=== PATIENT | female | born 1970 | race African-American/Black ===

== ENCOUNTER 2017-08-22 00:50 | Inpatient (IN) | payer MEDICAID, OTHER ==
[2017-08-22] VITALS (8 sets, daily range): BP systolic 117–132; BP diastolic 64–83
[~2017-08-22] VITALS: Ht 157.5 cm; Wt 54.9 kg
[2017-08-22 05:58] LABS: CLARITY URINE CLOUDY (CLEAR); COLOR URINE YELLOW (YELLOW); KETONES URINE TRACE (NEGATIVE); LEUKOCYTE ESTERASE URINE TRACE (NEGATIVE); NITRITE URINE NEGATIVE (NEGATIVE); OCCULT BLOOD URINE 2+ (NEGATIVE); PROTEIN URINE 1+ (NEGATIVE); SPECIFIC GRAVITY URINE 1.028 (1.005-1.030); UROBILINOGEN URINE 0.2 E.U./dL (0.2-1.0)
[2017-08-22 06:01] LABS: MEAN CORPUSCULAR VOLUME 58.6 fL (81.0-99.0); MEAN PLATELET VOLUME 8.6 fl (7.4-10.4); PLATELET 398 x1000/uL (130-400); RED BLOOD CELL COUNT 3.46 mill/uL (4.2-5.4); RED CELL DISTRIBUTION WIDTH 22.6 % (11.6-14.6)
[2017-08-22 06:06] LABS: HEMOGLOBIN. 5.9 g/dL (12.0-16.0)
[2017-08-22 06:07] LABS: HEMATOCRIT. 20.3 % (36.0-48.0)
[2017-08-22 06:09] LABS: CHLORIDE 104 mEq/L (98-107); ETHANOL BLOOD < 10 mg/dL
[2017-08-22 06:24] LABS: *AMPHETAMINES SCREEN URINE NEGATIVE (NEGATIVE); *BARBITURATES SCREEN URINE NEGATIVE (NEGATIVE); *BENZODIAZEPINES SCREEN URINE NEGATIVE (NEGATIVE); *COCAINE SCREEN URINE NEGATIVE (NEGATIVE); METHADONE URINE SCREEN NEGATIVE (NEGATIVE); OPIATES URINE SCREEN NEGATIVE (NEGATIVE)
[2017-08-22 06:27] LABS: CANNABINOID URINE SCREEN PRESUMTIVE POSITIVE (NEGATIVE); PHENCYCLIDINE URINE SCREEN PRESUMTIVE POSITIVE (NEGATIVE)
[2017-08-22 07:08] LABS: PLATELET ESTIMATE NORMAL
[2017-08-22] MEDS ORDERED: NA PHOS,M-B/NA PHOS,DI-BA ENEMA 118ML PR PRN (07:45)
[2017-08-22] MEDS ORDERED: LORAZEPAM 0.5MG TABLET PO PRN (07:45)
[2017-08-22] MEDS ORDERED: DOCUSATE SODIUM 100MG CAPSULE PO PRN (07:45)
[2017-08-22] MEDS ORDERED: HALOPERIDOL LACTATE 5MG/ML VIAL IM PRN (07:45)
[2017-08-22] MEDS ORDERED: IPRATROPIUM/ALBUTEROL 0.5-3(2.5)MG/3ML NEB INH PRN (07:45)
[2017-08-22] MEDS ORDERED: NITROGLYCERIN 0.4MG TABLET SL SL PRN (07:45)
[2017-08-22] MEDS ORDERED: DIPHENHYDRAMINE 50MG/ML VIAL IV PRN (07:45)
[2017-08-22] MEDS ORDERED: ACETAMINOPHEN 325MG TABLET PO PRN (07:45)
[2017-08-22] MEDS ORDERED: KETOROLAC 15MG/ML VIAL IV PRN (07:45)
[2017-08-22] MEDS ORDERED: ZOLPIDEM TARTRATE 5MG TABLET PO PRN (07:45)
[2017-08-22] MEDS ORDERED: ONDANSETRON HCL 4MG/2ML VIAL IV PRN (07:45)
[2017-08-22] MEDS: FAMOTIDINE 20MG/2ML VIAL IV SCH ×2 (11:38→20:24)
[2017-08-22] MEDS ORDERED: POTASSIUM CHLORIDE 20MEQ/PACKET PO NR (12:15)
[2017-08-22] MEDS ORDERED: LEVOFLOXACIN 500MG PREMIX 100 ML IV SCH (14:00)
[2017-08-22 19:59] LABS: HEMATOCRIT 26.7 % (36.0-48.0); HEMOGLOBIN 8.1 g/dL (12.0-16.0)
[2017-08-22 20:00] LABS: PROTHROMBIN TIME 10.8 sec (9.4-11.6)
[2017-08-23] VITALS: BP 116/77
[2017-08-23 04:00] VITALS: BP 123/73
[2017-08-23 07:27] VITALS: BP 111/66
[2017-08-23] MEDS: FAMOTIDINE 20MG/2ML VIAL IV SCH (08:10)
[2017-08-23 09:39] LABS: BASOPHILS % 1.2 % (0.0-2.0); HEMATOCRIT. 28.9 % (36.0-48.0); HEMOGLOBIN. 8.7 g/dL (12.0-16.0); LYMPHOCYTES % 11.8 % (20.0-50.0); MEAN CORPUSCULAR HEMOGLOBIN 19.6 pg (28.0-32.0); MEAN CORPUSCULAR VOLUME 65.2 fL (81.0-99.0); MEAN PLATELET VOLUME 8.5 fl (7.4-10.4); PLATELET 345 x1000/uL (130-400); RED BLOOD CELL COUNT 4.44 mill/uL (4.2-5.4); RED CELL DISTRIBUTION WIDTH 29.2 % (11.6-14.6)
[2017-08-23 10:41] VITALS: BP 111/66
[2017-08-23 11:25] VITALS: BP 106/72
== END 2017-08-23 11:45 | disposition home or self-care (01) | DRG 463 ==
LOC: ER 00:50 → 8WST 06:32 → ENRESERV 08:22
PROVIDERS: ADMIT Internal Medicine; ATTEND Internal Medicine
PROC: 30233N1 Transfusion of Nonautologous Red Blood Cells into Peripheral Vein, Percutaneous Approach (ICD-10-PCS; principal; 2017-08-22)
DX: N39.0 Urinary tract infection, site not specified (principal); E87.6 Hypokalemia; N93.8 Other specified abnormal uterine and vaginal bleeding; D64.9 Anemia, unspecified; F17.210 Nicotine dependence, cigarettes, uncomplicated; F19.10 Other psychoactive substance abuse, uncomplicated; F99 Mental disorder, not otherwise specified; Z71.51 Drug abuse counseling and surveillance of drug abuser
CPT/HCPCS: 36415; 76830; 76856; 80053; 80305; 81001; 83036; 85014; 85018; 85025; 85049; 85384; 85610; 86850; 86900; 86920; 87077; 87086; 87186; 93970; 99285; G0482; J1956; J3490; P9016

== ENCOUNTER 2020-09-05 22:27 | Emergency (ER) | payer MEDICAID, OTHER ==
[~2020-09-05] VITALS: Ht 157.5 cm; Wt 52.0 kg
[2020-09-05 22:36] VITALS: BP 121/72
== END 2020-09-05 22:59 | disposition left against medical advice (07) ==
LOC: ER 22:27
DX: R55 Syncope and collapse (principal); Z53.21 Procedure and treatment not carried out due to patient leaving prior to being seen by health care provider
CPT/HCPCS: 93005

== ENCOUNTER 2020-11-27 02:02 | Emergency (ER) | payer MEDICAID ==
[~2020-11-27] VITALS: Ht 157.5 cm; Wt 60.0 kg
[2020-11-27] MEDS ORDERED: ZIPRASIDONE MESYLATE 20MG/VIAL IM ONE (02:30)
[2020-11-27 02:53] LABS: BASOPHILS % 1.2 % (0.0-2.0); EOSINOPHILS % 0.3 % (0.0-5.0); HEMATOCRIT. 21.6 % (36.0-48.0); LYMPHOCYTES % 17.8 % (20.0-50.0); MEAN CORPUSCULAR HEMOGLOBIN 15.6 pg (28.0-32.0); MEAN CORPUSCULAR VOLUME 61.6 fL (81.0-99.0); MEAN PLATELET VOLUME 8.6 fl (7.4-10.4); NEUTROPHILS % 75.7 % (40.0-76.0); PLATELET 328 x1000/uL (130-400); RED CELL DISTRIBUTION WIDTH 21.7 % (11.6-14.6)
[2020-11-27 03:00] LABS: CHLORIDE 109 mEq/L (98-107)
[2020-11-27 03:02] LABS: HCG SCREEN NEGATIVE
[2020-11-27 03:04] LABS: ETHANOL BLOOD 74 mg/dL
[2020-11-27 03:16] LABS: CLARITY URINE CLOUDY (CLEAR); COLOR URINE YELLOW (YELLOW); KETONES URINE 1+ (NEGATIVE); LEUKOCYTE ESTERASE URINE NEGATIVE (NEGATIVE); NITRITE URINE NEGATIVE (NEGATIVE); OCCULT BLOOD URINE TRACE (NEGATIVE); PROTEIN URINE 3+ (NEGATIVE); SPECIFIC GRAVITY URINE 1.015 (1.005-1.030); UROBILINOGEN URINE 0.2 E.U./dL (0.2-1.0)
[2020-11-27 03:19] LABS: HEMOGLOBIN. 5.5 g/dL (12.0-16.0)
[2020-11-27 03:37] LABS: *AMPHETAMINES SCREEN URINE NEGATIVE (NEGATIVE); *BARBITURATES SCREEN URINE NEGATIVE (NEGATIVE); *BENZODIAZEPINES SCREEN URINE NEGATIVE (NEGATIVE)
[2020-11-27 03:38] LABS: *COCAINE SCREEN URINE NEGATIVE (NEGATIVE); METHADONE URINE SCREEN NEGATIVE (NEGATIVE); OPIATES URINE SCREEN NEGATIVE (NEGATIVE)
[2020-11-27 03:50] LABS: CANNABINOID URINE SCREEN PRESUMTIVE POSITIVE (NEGATIVE); PHENCYCLIDINE URINE SCREEN PRESUMTIVE POSITIVE (NEGATIVE)
[2020-11-27 04:30] VITALS: BP 125/74
[2020-11-27 04:56] LABS: PLATELET ESTIMATE NORMAL
== END 2020-11-27 05:52 | disposition left against medical advice (07) ==
LOC: ER 02:02 → EDBEDREQTM 05:40 → EDBEDREQ 05:40 → ER 05:52 → CANRESERV 07:37 → ENRESERV 07:37 → CANBEDREQ 17:51
DX: R41.82 Altered mental status, unspecified (principal); D64.9 Anemia, unspecified; Z78.1 Physical restraint status
CPT/HCPCS: 36415; 80053; 80305; 80307; 80320; 80329; 81003; 84703; 85025; 86850; 86900; 86901; 86920; 93005; 96372; 99291; J3486; G0480

== ENCOUNTER 2021-06-19 05:11 | Emergency (ER) | payer MEDICAID ==
[~2021-06-19] VITALS: Ht 157.5 cm; Wt 54.0 kg
[2021-06-19 05:52] LABS: BASOPHILS % 1.1 % (0.0-2.0); HEMATOCRIT. 21.5 % (36.0-48.0); LYMPHOCYTES % 18.7 % (20.0-50.0); MEAN CORPUSCULAR HEMOGLOBIN 16.6 pg (28.0-32.0); MEAN CORPUSCULAR VOLUME 60.9 fL (81.0-99.0); MEAN PLATELET VOLUME 8.6 fl (7.4-10.4); MONOCYTES % 6.5 % (2.0-8.0); NEUTROPHILS % 71.7 % (40.0-76.0); PLATELET 221 x1000/uL (130-400); RED BLOOD CELL COUNT 3.53 mill/uL (4.2-5.4); RED CELL DISTRIBUTION WIDTH 19.5 % (11.6-14.6)
[2021-06-19 05:55] LABS: CHLORIDE 109 mEq/L (98-107)
[2021-06-19 06:01] LABS: ETHANOL BLOOD < 10 mg/dL
[2021-06-19 06:09] LABS: HEMOGLOBIN. 5.9 g/dL (12.0-16.0)
[2021-06-19 06:51] LABS: CLARITY URINE TURBID (CLEAR); KETONES URINE TRACE (NEGATIVE); LEUKOCYTE ESTERASE URINE 2+ (NEGATIVE); NITRITE URINE NEGATIVE (NEGATIVE); OCCULT BLOOD URINE 3+ (NEGATIVE); PROTEIN URINE 2+ (NEGATIVE); SPECIFIC GRAVITY URINE 1.021 (1.005-1.030)
[2021-06-19 07:02] LABS: COLOR URINE BLOODY (YELLOW)
[2021-06-19 07:13] LABS: *BARBITURATES SCREEN URINE NEGATIVE (NEGATIVE); *COCAINE SCREEN URINE NEGATIVE (NEGATIVE)
[2021-06-19 07:14] LABS: METHADONE URINE SCREEN NEGATIVE (NEGATIVE); OPIATES URINE SCREEN NEGATIVE (NEGATIVE)
[2021-06-19 07:49] LABS: *AMPHETAMINES SCREEN URINE PRESUMTIVE POSITIVE (NEGATIVE); *BENZODIAZEPINES SCREEN URINE PRESUMTIVE POSITIVE (NEGATIVE); CANNABINOID URINE SCREEN PRESUMTIVE POSITIVE (NEGATIVE); PHENCYCLIDINE URINE SCREEN PRESUMTIVE POSITIVE (NEGATIVE)
[2021-06-19 07:58] LABS: PLATELET ESTIMATE NORMAL
[2021-06-19 09:45] VITALS: BP 128/71
== END 2021-06-19 10:00 | disposition left against medical advice (07) ==
LOC: ER 05:11 → CANBEDREQ 19:07
DX: G93.40 Encephalopathy, unspecified (principal); I49.9 Cardiac arrhythmia, unspecified; R51.9 Headache, unspecified
CPT/HCPCS: 36415; 70450; 71045; 80053; 80305; 80320; 81003; 85025; 86850; 86900; 86901; 93005; 99285; Z7610; G0480

== ENCOUNTER 2022-11-29 18:18 | Emergency (ER) | payer MEDICAID, OTHER ==
[~2022-11-29] VITALS: Ht 157.5 cm; Wt 55.0 kg
[2022-11-29 18:27] VITALS: BP 134/79
[2022-11-29 19:25] LABS: BASOPHILS % 1.3 % (0.0-2.0); EOSINOPHILS % 2.6 % (0.0-5.0); MEAN CORPUSCULAR HEMOGLOBIN 18.8 pg (28.0-32.0); MEAN CORPUSCULAR VOLUME 64.7 fL (81.0-99.0); MEAN PLATELET VOLUME 8.1 fl (7.4-10.4); NEUTROPHILS % 64.1 % (40.0-76.0); PLATELET 259 x1000/uL (130-400); RED BLOOD CELL COUNT 3.73 mill/uL (4.2-5.4); RED CELL DISTRIBUTION WIDTH 21.8 % (11.6-14.6)
[2022-11-29 19:28] LABS: HEMATOCRIT. 24.1 % (36.0-48.0)
[2022-11-29 19:30] LABS: CHLORIDE 105 mEq/L (98-107)
[2022-11-29 19:38] LABS: ETHANOL BLOOD < 10 mg/dL
[2022-11-29 19:41] LABS: HCG SCREEN NEGATIVE
[2022-11-29 19:51] LABS: PLATELET ESTIMATE NORMAL
[2022-11-29] MEDS ORDERED: SODIUM CHLORIDE 0.9% 1,000 ML IV ONE (21:00)
[2022-11-29] MEDS ORDERED: GUAIFENESIN 200MG/10ML SUGAR FREE UDC PO PRN (21:45)
[2022-11-29] MEDS ORDERED: POTASSIUM CHLORIDE 20MEQ TABLET SR PO ONE (21:45)
[2022-11-29] MEDS ORDERED: SODIUM CHLORIDE 0.9% 1,000 ML IV SCH (21:45)
[2022-11-29] MEDS ORDERED: CLONIDINE 0.1MG TABLET PO PRN (21:45)
[2022-11-29] MEDS ORDERED: MAGNESIUM/ALUMINUM HYDROXIDE/SIMETHICONE 30ML UDC PO PRN (21:45)
[2022-11-29] MEDS ORDERED: ONDANSETRON HCL 4MG/2ML INJ IV PRN (21:45)
[2022-11-29] MEDS ORDERED: HYDROCODONE/ACETAMINOPHEN 5/325MG TABLET PO PRN (21:45)
[2022-11-29] MEDS ORDERED: ACETAMINOPHEN 325MG TABLET PO PRN ×2 (21:45)
[2022-11-29] MEDS ORDERED: DOCUSATE SODIUM 100MG CAPSULE PO PRN (21:45)
[2022-11-29 23:13] LABS: FOLIC ACID (FOLATE) SERUM 14.2 ng/mL (>5.38)
[2022-11-30] MEDS ORDERED: FAMOTIDINE 20MG TABLET PO SCH (21:00)
== END 2022-11-29 23:36 | disposition left against medical advice (07) ==
LOC: ER 18:18 → EDBEDREQ 20:57 → ER 23:36
DX: D64.9 Anemia, unspecified (principal); R42 Dizziness and giddiness
CPT/HCPCS: 36415; 76830; 76856; 80053; 80061; 80320; 82607; 82728; 82746; 83540; 83550; 83735; 84443; 84703; 85025; 86850; 86900; 86901; 86920; 99284; J7030; G0480

== ENCOUNTER 2022-11-30 00:18 | Inpatient (IN) | payer MEDICAID, OTHER ==
[~2022-11-30] VITALS: Ht 167.6 cm; Wt 45.4 kg
[2022-11-30] MEDS ORDERED: SODIUM CHLORIDE 0.9% 1,000 ML IV ONE (01:45)
[2022-11-30 02:10] LABS: HEMATOCRIT. 27.1 % (36.0-48.0); HEMOGLOBIN. 7.7 g/dL (12.0-16.0); MEAN CORPUSCULAR HEMOGLOBIN 18.3 pg (28.0-32.0); MEAN CORPUSCULAR VOLUME 64.4 fL (81.0-99.0); MEAN PLATELET VOLUME 8.8 fl (7.4-10.4); PLATELET 229 x1000/uL (130-400); RED BLOOD CELL COUNT 4.21 mill/uL (4.2-5.4)
[2022-11-30 02:24] LABS: CHLORIDE 107 mEq/L (98-107)
[2022-11-30 02:33] LABS: ETHANOL BLOOD < 10 mg/dL
[2022-11-30 02:54] LABS: CLARITY URINE CLEAR (CLEAR); COLOR URINE YELLOW (YELLOW); KETONES URINE NEGATIVE (NEGATIVE); LEUKOCYTE ESTERASE URINE NEGATIVE (NEGATIVE); NITRITE URINE NEGATIVE (NEGATIVE); OCCULT BLOOD URINE NEGATIVE (NEGATIVE); PH URINE 5.5 (4.5-8.0); PROTEIN URINE 2+ (NEGATIVE); SPECIFIC GRAVITY URINE 1.025 (1.005-1.030)
[2022-11-30 03:07] LABS: *AMPHETAMINES SCREEN URINE PRESUMTIVE POSITIVE (NEGATIVE); *BARBITURATES SCREEN URINE NEGATIVE (NEGATIVE); *BENZODIAZEPINES SCREEN URINE PRESUMTIVE POSITIVE (NEGATIVE); *COCAINE SCREEN URINE PRESUMTIVE POSITIVE (NEGATIVE); CANNABINOID URINE SCREEN PRESUMTIVE POSITIVE (NEGATIVE); METHADONE URINE SCREEN NEGATIVE (NEGATIVE); OPIATES URINE SCREEN NEGATIVE (NEGATIVE); PHENCYCLIDINE URINE SCREEN PRESUMTIVE POSITIVE (NEGATIVE)
[2022-11-30 05:29] LABS: PLATELET ESTIMATE NORMAL
[2022-11-30] MEDS ORDERED: ONDANSETRON HCL 4MG/2ML INJ IV PRN (06:30)
[2022-11-30] MEDS ORDERED: HYDROCODONE/ACETAMINOPHEN 5/325MG TABLET PO PRN ×2 (06:30→06:45)
[2022-11-30] MEDS ORDERED: MORPHINE SULFATE 2 MG/ML CPJ (NOT FOR IM USE) IV PRN ×2 (06:30→06:45)
[2022-11-30] MEDS ORDERED: ACETAMINOPHEN 325MG TABLET PO PRN (06:30)
[2022-11-30] MEDS ORDERED: SODIUM CHLORIDE 0.9% 1,000 ML IV SCH (06:45)
[2022-11-30] MEDS ORDERED: LORAZEPAM 2MG/ML CPJ IV PRN (06:45)
[2022-11-30 08:00] VITALS: BP 115/71
[2022-11-30] MEDS ORDERED: NALOXONE HCL 0.4MG/ML VIAL IV PRN (08:15)
[2022-11-30 08:50] VITALS: BP 115/71
[2022-11-30] MEDS ORDERED: FOLIC ACID 1MG TABLET PO SCH (09:00)
[2022-11-30] MEDS ORDERED: POTASSIUM CHLORIDE 20MEQ TABLET SR PO SCH (09:30)
[2022-11-30] MEDS ORDERED: FUROSEMIDE 20MG TABLET PO SCH (10:00)
[2022-11-30 12:00] VITALS: BP 121/68
[2022-11-30] MEDS: FERROUS SULFATE 325MG TABLET PO SCH (12:09)
[2022-12-01] MEDS ORDERED: FERROUS SULFATE 325MG TABLET PO SCH (07:00)
== END 2022-11-30 16:47 | disposition left against medical advice (07) | DRG 145 ==
LOC: ER 00:18 → EDBEDREQ 03:08 → MICUSO 03:21 → 7EST 08:35
PROVIDERS: ADMIT Internal Medicine Nephrology; ATTEND Internal Medicine Nephrology
DX: R06.02 Shortness of breath (principal); F17.200 Nicotine dependence, unspecified, uncomplicated; F31.9 Bipolar disorder, unspecified; F20.9 Schizophrenia, unspecified; Z53.29 Procedure and treatment not carried out because of patient's decision for other reasons; Z78.1 Physical restraint status; Z98.891 History of uterine scar from previous surgery
CPT/HCPCS: 36415; 71045; 80053; 80305; 80320; 81003; 82140; 84484; 85025; 99285; J7030; G0480

== ENCOUNTER 2023-02-17 01:21 | Emergency (ER) | payer MEDICAID ==
[~2023-02-17] VITALS: Ht 162.6 cm; Wt 65.0 kg
[2023-02-17 01:24] VITALS: BP 118/74; O2SAT 100
[2023-02-17] MEDS ORDERED: LIDOCAINE HCL/PF 1% 10 MG/ML 5ML VIAL INFIL ONE (01:45)
[2023-02-17] MEDS ORDERED: SULFAMETHOXAZOLE/TRIMETHOPRIM 800/160MG TABLET PO ONE (01:45)
[2023-02-17] MEDS ORDERED: BACITRACIN ZINC OINT UDPKT TOP ONE (01:45)
[2023-02-17] MEDS ORDERED: CEFTRIAXONE SODIUM 1 G/VIAL IM ONE (01:45)
[2023-02-17] MEDS ORDERED: TETANUS, DIPHTHERIA, PERTUSSIS VAC/PF 0.5ML (>10YR OLD) IM ONE (01:45)
[2023-02-17] MEDS ORDERED: SULF1TAB48 MT (02:41)
[2023-02-17] MEDS ORDERED: CEPH500T MT (02:41)
[2023-02-17 03:00] VITALS: PULSE 74; RESP 16; TEMP 98
== END 2023-02-17 03:04 | disposition home or self-care (01) ==
LOC: ER 01:21
DX: L02.416 Cutaneous abscess of left lower limb (principal); L03.116 Cellulitis of left lower limb
CPT/HCPCS: 90715; 10060; 90471; 96372; 99284; J0696; J3490; Z7610 ×5

== ENCOUNTER 2023-03-29 17:22 | Emergency (ER) | payer OTHER, MEDICAID ==
[~2023-03-29] VITALS: Ht 157.5 cm; Wt 70.0 kg
[~2023-03-29 17:22] MED LIST: CEPH500T MT; SULF1TAB48 MT
[2023-03-29 17:25] VITALS: BP 117/62; PULSE 102; RESP 16; TEMP 98.4; O2SAT 100
== END 2023-03-29 17:57 ==
LOC: ER 17:22
DX: F10.129 Alcohol abuse with intoxication, unspecified (principal); Y90.0 Blood alcohol level of less than 20 mg/100 ml
CPT/HCPCS: 99283

== ENCOUNTER 2023-12-16 21:54 | Emergency (ER) | payer MEDICAID, OTHER ==
[~2023-12-16] VITALS: Ht 157.5 cm; Wt 64.0 kg
[2023-12-16 22:00] VITALS: O2SAT 100
[2023-12-17 03:45] VITALS: BP 137/58; PULSE 85; RESP 18; TEMP 98
== END 2023-12-17 03:55 | disposition home or self-care (01) ==
LOC: ER 21:54
DX: M25.562 Pain in left knee (principal); Y04.0XXA Assault by unarmed brawl or fight, initial encounter; Y93.89 Activity, other specified; Y92.89 Other specified places as the place of occurrence of the external cause; Y99.8 Other external cause status
CPT/HCPCS: 71045; 73562; 99284

== ENCOUNTER 2024-05-11 15:13 | Emergency (ER) | payer MEDICAID ==
[~2024-05-11] VITALS: Ht 167.6 cm; Wt 70.0 kg
[2024-05-11 15:19] VITALS: BP 115/59; PULSE 110; RESP 18; TEMP 98.4; O2SAT 97
== END 2024-05-11 16:48 | disposition left against medical advice (07) ==
LOC: ER 15:13
DX: Z00.00 Encounter for general adult medical examination without abnormal findings (principal)
CPT/HCPCS: 99283

== ENCOUNTER 2024-05-18 05:23 | Emergency (ER) | payer MEDICAID ==
[~2024-05-18] VITALS: Ht 162.6 cm; Wt 56.4 kg
[2024-05-18 05:30] VITALS: BP 126/56; RESP 16; TEMP 98.7; O2SAT 100
[2024-05-18 05:37] VITALS: PULSE 67; O2SAT 95
== END 2024-05-18 06:58 | disposition home or self-care (01) ==
LOC: ER 05:23
DX: F41.9 Anxiety disorder, unspecified (principal)
CPT/HCPCS: 82962; 99282

== ENCOUNTER 2024-06-25 12:48 | Emergency (ER) | payer MEDICAID, OTHER ==
[~2024-06-25] VITALS: Ht 160 cm; Wt 55.0 kg
[2024-06-25 12:55] VITALS: O2SAT 100
[2024-06-25 14:39] VITALS: BP 121/67; PULSE 80; RESP 18; TEMP 36.72516; O2SAT 100
== END 2024-06-25 15:04 | disposition left against medical advice (07) ==
LOC: ER 12:52
DX: R07.9 Chest pain, unspecified (principal); F19.90 Other psychoactive substance use, unspecified, uncomplicated; F10.20 Alcohol dependence, uncomplicated; Y90.9 Presence of alcohol in blood, level not specified
CPT/HCPCS: 71045; 93005; 99283

== ENCOUNTER 2024-09-29 21:48 | Emergency (ER) | payer MEDICAID, OTHER ==
[~2024-09-29] VITALS: Ht 157.5 cm; Wt 52.2 kg
[2024-09-29 21:55] VITALS: TEMP 36.8; O2SAT 100
[2024-09-29] MEDS: IBUPROFEN 600MG TABLET PO ONE (22:31)
[2024-09-29 23:01] LABS: BASOPHILS % 2.3 % (0.0-2.0); EOSINOPHILS % 3.7 % (0.0-5.0); HEMATOCRIT. 28.3 % (36.0-48.0); HEMOGLOBIN. 8.2 g/dL (12.0-16.0); LYMPHOCYTES % 29.3 % (20.0-50.0); MEAN CORPUSCULAR HEMOGLOBIN 19.3 pg (28.0-32.0); MEAN CORPUSCULAR VOLUME 66.5 fL (81.0-99.0); MEAN PLATELET VOLUME 8.6 fl (7.4-10.4); MONOCYTES % 5.8 % (2.0-8.0); NEUTROPHILS % 58.9 % (40.0-76.0); PLATELET 378 x1000/uL (130-400); RED BLOOD CELL COUNT 4.26 mill/uL (4.2-5.4); RED CELL DISTRIBUTION WIDTH 21.8 % (11.6-14.6); WHITE BLOOD COUNT 7.6 x1000/uL (4.5-11.0)
[2024-09-29 23:03] LABS: ADD RBC MORPHOLOGY YES; DIFFERENTIAL COMMENT 1
[2024-09-29 23:10] LABS: CHLORIDE 106 mEq/L (98-107); POTASSIUM 3.4 mEq/L (3.5-5.1); SODIUM 143 mEq/L (136-145)
[2024-09-29 23:11] LABS: CARBON DIOXIDE 27 mEq/L (21-32)
[2024-09-29 23:12] LABS: CALCIUM 9.3 mg/dL (8.7-10.4)
[2024-09-29 23:16] LABS: CREATININE 0.9 mg/dL (0.6-1.0)
[2024-09-29 23:17] LABS: ANISOCYTOSIS 2+; GLUCOSE 82 mg/dL (70-105); HYPOCHROMASIA 2+; MICROCYTOSIS 3+; PLATELET ESTIMATE NORMAL; UREA NITROGEN BLOOD 10 mg/dL (9-23)
[2024-09-29 23:18] LABS: TROPONIN I HIGH SENSITIVITY < 4 ng/L (3.0-34)
[2024-09-30 01:06] LABS: TROPONIN I HIGH SENSITIVITY < 4 ng/L (3.0-34)
[2024-09-30] MEDS ORDERED: IBUP-2029 MT (01:08)
[2024-09-30] MEDS ORDERED: FERR324T4 MT (01:11)
[2024-09-30] MEDS ORDERED: ACET-2708 MT (01:11)
[2024-09-30 01:48] VITALS: BP 114/78; PULSE 77; RESP 18; O2SAT 99
== END 2024-09-30 01:48 | disposition home or self-care (01) ==
LOC: ER 21:48
DX: R07.89 Other chest pain (principal); D50.0 Iron deficiency anemia secondary to blood loss (chronic); I10 Essential (primary) hypertension; Z79.899 Other long term (current) drug therapy
CPT/HCPCS: 36415; 71045; 80048; 84484; 85025; 99284; 99285

== ENCOUNTER 2024-10-08 06:05 | Emergency (ER) | payer OTHER ==
[~2024-10-08] VITALS: Ht 167.6 cm; Wt 56.0 kg
[~2024-10-08 06:05] MED LIST changes: +ACET-2708 MT; +FERR324T4 MT
[2024-10-08 06:27] VITALS: O2SAT 100
[2024-10-08 06:32] VITALS: BP 125/59; PULSE 98; RESP 18; TEMP 36.9; O2SAT 100
[2024-10-08 08:08] LABS: CHLORIDE 105 mEq/L (98-107); SODIUM 139 mEq/L (136-145)
[2024-10-08] MEDS: ASPIRIN 325MG TABLET PO ONE (08:08)
[2024-10-08 08:09] LABS: BASOPHILS % 1.6 % (0.0-2.0); CARBON DIOXIDE 27 mEq/L (21-32); EOSINOPHILS % 7.1 % (0.0-5.0); HEMOGLOBIN. 8.6 g/dL (12.0-16.0); LYMPHOCYTES % 18.1 % (20.0-50.0); MEAN CORPUSCULAR HEMOGLOBIN 19.3 pg (28.0-32.0); MEAN CORPUSCULAR HGB CONC 29.6 g/dL (31.0-37.0); MEAN CORPUSCULAR VOLUME 65.1 fL (81.0-99.0); MONOCYTES % 6.6 % (2.0-8.0); NEUTROPHILS % 66.6 % (40.0-76.0); PLATELET 331 x1000/uL (130-400); RED BLOOD CELL COUNT 4.45 mill/uL (4.2-5.4); RED CELL DISTRIBUTION WIDTH 21.4 % (11.6-14.6); WHITE BLOOD COUNT 8.7 x1000/uL (4.5-11.0)
[2024-10-08 08:12] LABS: ADD RBC MORPHOLOGY YES; DIFFERENTIAL COMMENT 1
[2024-10-08 08:14] LABS: CREATININE 0.7 mg/dL (0.6-1.0); GLUCOSE 96 mg/dL (70-105); UREA NITROGEN BLOOD 11 mg/dL (9-23)
[2024-10-08 08:25] LABS: PARTIAL THROMBOPLASTIN TIME 28.8 sec (23.4-31.0); PROTHROMBIN TIME 10.9 sec (9.6-11.0)
[2024-10-08 08:30] LABS: HCG SCREEN NEGATIVE
[2024-10-08 08:58] LABS: TROPONIN I HIGH SENSITIVITY < 4 ng/L (3.0-34)
[2024-10-09 08:20] LABS: ANISOCYTOSIS 3+; HYPOCHROMASIA 1+; MICROCYTOSIS 3+; OVALOCYTES 1+; PLATELET ESTIMATE NORMAL
== END 2024-10-08 09:13 | disposition left against medical advice (07) ==
LOC: ER 06:23 → EDBEDREQ 08:08 → EDBEDREQTM 08:08 → ER 09:13
DX: R07.89 Other chest pain (principal); I10 Essential (primary) hypertension; Z79.899 Other long term (current) drug therapy
CPT/HCPCS: 36415; 71045; 80048; 84484; 84703; 85025; 93005; 99285

== ENCOUNTER 2024-10-09 22:16 | Emergency (ER) | payer OTHER ==
[~2024-10-09] VITALS: Ht 165.1 cm; Wt 63.0 kg
[2024-10-09 22:29] VITALS: O2SAT 100
[2024-10-09 22:47] VITALS: TEMP 36.9; O2SAT 99
[2024-10-10 01:08] LABS: BASOPHILS % 1.3 % (0.0-2.0); EOSINOPHILS % 7.2 % (0.0-5.0); HEMATOCRIT. 26.7 % (36.0-48.0); HEMOGLOBIN. 7.9 g/dL (12.0-16.0); LYMPHOCYTES % 27.5 % (20.0-50.0); MEAN CORPUSCULAR HEMOGLOBIN 19.4 pg (28.0-32.0); MEAN CORPUSCULAR HGB CONC 29.7 g/dL (31.0-37.0); MEAN CORPUSCULAR VOLUME 65.2 fL (81.0-99.0); MEAN PLATELET VOLUME 8.9 fl (7.4-10.4); MONOCYTES % 7.9 % (2.0-8.0); NEUTROPHILS % 56.1 % (40.0-76.0); PLATELET 357 x1000/uL (130-400); RED BLOOD CELL COUNT 4.09 mill/uL (4.2-5.4); RED CELL DISTRIBUTION WIDTH 20.8 % (11.6-14.6); WHITE BLOOD COUNT 8.5 x1000/uL (4.5-11.0)
[2024-10-10 01:09] LABS: DIFFERENTIAL COMMENT 1
[2024-10-10 01:13] LABS: CHLORIDE 107 mEq/L (98-107); POTASSIUM 3.8 mEq/L (3.5-5.1); SODIUM 143 mEq/L (136-145)
[2024-10-10 01:14] LABS: CARBON DIOXIDE 29 mEq/L (21-32)
[2024-10-10 01:15] LABS: CALCIUM 9.2 mg/dL (8.7-10.4)
[2024-10-10 01:19] LABS: CREATININE 0.8 mg/dL (0.6-1.0); GLUCOSE 113 mg/dL (70-105); UREA NITROGEN BLOOD 13 mg/dL (9-23)
[2024-10-10 01:25] LABS: TROPONIN I HIGH SENSITIVITY < 4 ng/L (3.0-34)
[2024-10-10 01:38] VITALS: BP 133/79; PULSE 90; RESP 18
[2024-10-10] MEDS: KETOROLAC 30MG/ML VIAL IM STA (01:38)
[2024-10-10 02:05] LABS: TROPONIN I HIGH SENSITIVITY < 4 ng/L (3.0-34)
== END 2024-10-10 02:45 | disposition home or self-care (01) ==
LOC: ER 22:16
DX: R07.89 Other chest pain (principal); F10.90 Alcohol use, unspecified, uncomplicated
CPT/HCPCS: 99285; 93005; 71045; 80048; 85025; 84484; 36415; 96372; J1885

== ENCOUNTER 2024-10-29 01:03 | Emergency (ER) | payer MEDICAID, OTHER ==
[~2024-10-29] VITALS: Ht 167.6 cm; Wt 54.0 kg
[2024-10-29 01:08] VITALS: TEMP 37.1; O2SAT 100
[2024-10-29 06:42] VITALS: BP 139/92; PULSE 90; RESP 15
[2024-10-29] MEDS: HYDROCODONE/ACETAMINOPHEN 10/325MG TABLET PO ONE (06:42)
[2024-10-29 08:10] LABS: BASOPHILS % 3.7 % (0.0-2.0); HEMATOCRIT. 27.2 % (36.0-48.0); HEMOGLOBIN. 7.8 g/dL (12.0-16.0); LYMPHOCYTES % 28.8 % (20.0-50.0); MEAN CORPUSCULAR HEMOGLOBIN 18.1 pg (28.0-32.0); MEAN CORPUSCULAR HGB CONC 28.9 g/dL (31.0-37.0); MEAN CORPUSCULAR VOLUME 62.7 fL (81.0-99.0); MEAN PLATELET VOLUME 8.6 fl (7.4-10.4); MONOCYTES % 8.6 % (2.0-8.0); NEUTROPHILS % 44.9 % (40.0-76.0); PLATELET 223 x1000/uL (130-400); RED BLOOD CELL COUNT 4.33 mill/uL (4.2-5.4); RED CELL DISTRIBUTION WIDTH 19.6 % (11.6-14.6); WHITE BLOOD COUNT 6.5 x1000/uL (4.5-11.0)
[2024-10-29 08:13] LABS: ADD RBC MORPHOLOGY YES; DIFFERENTIAL COMMENT 1
[2024-10-29 08:23] LABS: CHLORIDE 107 mEq/L (98-107); POTASSIUM 3.4 mEq/L (3.5-5.1); SODIUM 141 mEq/L (136-145)
[2024-10-29 08:24] LABS: CALCIUM 9.2 mg/dL (8.7-10.4); CARBON DIOXIDE 30 mEq/L (21-32)
[2024-10-29 08:29] LABS: CREATININE 0.7 mg/dL (0.6-1.0); GLUCOSE 92 mg/dL (70-105); UREA NITROGEN BLOOD 8 mg/dL (9-23)
[2024-10-29 09:26] LABS: MICROCYTOSIS 4+; PLATELET ESTIMATE NORMAL
[2024-10-29 09:27] LABS: HYPOCHROMASIA 2+; OVALOCYTES 1+
[2024-10-29] MEDS ORDERED: HYDR-4001 MT (10:20)
== END 2024-10-29 11:02 | disposition home or self-care (01) ==
LOC: ER 01:03
DX: S52.592A Other fractures of lower end of left radius, initial encounter for closed fracture (principal); Z79.899 Other long term (current) drug therapy; W23.1XXA Caught, crushed, jammed, or pinched between stationary objects, initial encounter; Y93.89 Activity, other specified; Y92.89 Other specified places as the place of occurrence of the external cause; Y99.8 Other external cause status
CPT/HCPCS: 29125; 36415; 73070; 73110; 73130; 80048; 85025; 93971; 99284

== ENCOUNTER 2024-11-18 05:56 | Emergency (ER) | payer MEDICAID, OTHER ==
[~2024-11-18] VITALS: Ht 157.5 cm; Wt 52.0 kg
[~2024-11-18 05:56] MED LIST changes: +HYDR-4001 MT
[2024-11-18 06:03] VITALS: O2SAT 100
[2024-11-18] MEDS: ACETAMINOPHEN 325MG TABLET PO ONE (07:02)
[2024-11-18] MEDS ORDERED: TOPUD PO (07:39)
[2024-11-18 08:19] VITALS: BP 134/72; PULSE 97; RESP 16; TEMP 36.5; O2SAT 100
== END 2024-11-18 08:21 | disposition home or self-care (01) ==
LOC: ER 05:56
DX: S52.591A Other fractures of lower end of right radius, initial encounter for closed fracture (principal); Z79.899 Other long term (current) drug therapy; X58.XXXA Exposure to other specified factors, initial encounter; Y93.89 Activity, other specified; Y92.89 Other specified places as the place of occurrence of the external cause; Y99.8 Other external cause status
CPT/HCPCS: 29105; 73090; 99283

== ENCOUNTER 2025-03-19 11:40 | Emergency (ER) | payer MEDICAID ==
[~2025-03-19] VITALS: Ht 162.6 cm; Wt 65.0 kg
[~2025-03-19 11:40] MED LIST changes: +TOPUD PO
[2025-03-19 13:06] LABS: BASOPHILS % 1.3 % (0.0-2.0); EOSINOPHILS % 5.5 % (0.0-5.0); HEMATOCRIT. 34.7 % (36.0-48.0); HEMOGLOBIN. 10.6 g/dL (12.0-16.0); LYMPHOCYTES % 28.5 % (20.0-50.0); MEAN PLATELET VOLUME 8.8 fl (7.4-10.4); MONOCYTES % 7.1 % (2.0-8.0); NEUTROPHILS % 57.6 % (40.0-76.0); PLATELET 226 x1000/uL (130-400); RED BLOOD CELL COUNT 4.78 mill/uL (4.2-5.4); RED CELL DISTRIBUTION WIDTH 27.4 % (11.6-14.6)
[2025-03-19 13:09] LABS: ADD RBC MORPHOLOGY YES
[2025-03-19 13:20] LABS: CREATININE 0.9 mg/dL (0.6-1.0)
[2025-03-19 13:21] LABS: ETHANOL BLOOD < 10 mg/dL (<10); UREA NITROGEN BLOOD 8 mg/dL (9-23)
[2025-03-19 13:34] LABS: PLATELET ESTIMATE NORMAL
[2025-03-19 13:55] VITALS: BP 130/81; PULSE 98; RESP 16; TEMP 37; O2SAT 99
== END 2025-03-19 13:57 | disposition home or self-care (01) ==
LOC: ER 13:31
DX: F16.129 Hallucinogen abuse with intoxication, unspecified (principal); G92.9 Unspecified toxic encephalopathy; Z79.899 Other long term (current) drug therapy
CPT/HCPCS: 36415; 80048; 80307; 80320; 80329; 85025; 99283; G0480

== ENCOUNTER 2025-04-24 04:45 | Emergency (ER) | payer MEDICAID ==
[~2025-04-24] VITALS: Ht 157.5 cm; Wt 47.7 kg
[2025-04-24 04:49] VITALS: O2SAT 100
[2025-04-24 04:55] VITALS: BP 140/85; PULSE 90; RESP 20; TEMP 36.5
[2025-04-24] MEDS ORDERED: ACETAMINOPHEN 325MG TABLET PO ONE (05:00)
== END 2025-04-24 05:20 | disposition left against medical advice (07) ==
LOC: ER 05:03
DX: S52.502A Unspecified fracture of the lower end of left radius, initial encounter for closed fracture (principal); S52.602A Unspecified fracture of lower end of left ulna, initial encounter for closed fracture; I10 Essential (primary) hypertension; Z79.899 Other long term (current) drug therapy; Z98.890 Other specified postprocedural states; X58.XXXA Exposure to other specified factors, initial encounter; Y93.89 Activity, other specified; Y92.89 Other specified places as the place of occurrence of the external cause; Y99.8 Other external cause status
CPT/HCPCS: 73110; 81025; 99283

== ENCOUNTER 2025-05-07 19:21 | Emergency (ER) | payer MEDICAID ==
[~2025-05-07] VITALS: Ht 162.6 cm; Wt 46.2 kg
[2025-05-07 19:28] VITALS: O2SAT 98
[2025-05-07] MEDS: KETOROLAC 30MG/ML VIAL IM ONE (20:10)
[2025-05-07] MEDS ORDERED: ACET-2708 MT (20:49)
[2025-05-07 21:09] VITALS: BP 119/56; PULSE 71; RESP 15; TEMP 36.4; O2SAT 97
== END 2025-05-07 21:09 | disposition home or self-care (01) ==
LOC: ER 19:21
DX: S52.502A Unspecified fracture of the lower end of left radius, initial encounter for closed fracture (principal); I10 Essential (primary) hypertension; X58.XXXA Exposure to other specified factors, initial encounter; Y93.89 Activity, other specified; Y92.89 Other specified places as the place of occurrence of the external cause; Y99.8 Other external cause status
CPT/HCPCS: 99283; 73110; 29125; 96372; J1885; A6449; A4565

== ENCOUNTER 2025-05-11 03:00 | Emergency (ER) | payer MEDICAID ==
[~2025-05-11] VITALS: Ht 157.5 cm; Wt 46.0 kg
[2025-05-11 03:12] VITALS: O2SAT 100
[2025-05-11] MEDS ORDERED: NAPR-1176 MT (04:39)
[2025-05-11] MEDS: ACETAMINOPHEN 325MG TABLET PO ONE (05:10)
[2025-05-11 06:01] VITALS: BP 141/81; PULSE 73; RESP 18; TEMP 36.7; O2SAT 100
== END 2025-05-11 06:29 | disposition home or self-care (01) ==
LOC: ER 03:22
DX: S52.502A Unspecified fracture of the lower end of left radius, initial encounter for closed fracture (principal); S52.602A Unspecified fracture of lower end of left ulna, initial encounter for closed fracture; Z79.1 Long term (current) use of non-steroidal anti-inflammatories (NSAID); X58.XXXA Exposure to other specified factors, initial encounter; Y93.89 Activity, other specified; Y92.89 Other specified places as the place of occurrence of the external cause; Y99.8 Other external cause status
CPT/HCPCS: 29125; 99283

== ENCOUNTER 2025-06-13 16:07 | Emergency (ER) | payer MEDICAID ==
[~2025-06-13] VITALS: Ht 160 cm; Wt 50.0 kg
[~2025-06-13 16:07] MED LIST changes: +NAPR-1176 MT
[2025-06-13 16:20] VITALS: BP 153/89; TEMP 36.9; O2SAT 98
[2025-06-13 16:29] VITALS: PULSE 97; RESP 18; O2SAT 99
== END 2025-06-13 19:01 | disposition home or self-care (01) ==
LOC: ER 17:12
DX: S52.502D Unspecified fracture of the lower end of left radius, subsequent encounter for closed fracture with routine healing (principal); S52.602D Unspecified fracture of lower end of left ulna, subsequent encounter for closed fracture with routine healing; I10 Essential (primary) hypertension; Z79.1 Long term (current) use of non-steroidal anti-inflammatories (NSAID); X58.XXXD Exposure to other specified factors, subsequent encounter
CPT/HCPCS: 73110; 99283

== ENCOUNTER 2025-06-29 17:47 | Emergency (ER) | payer MEDICAID ==
[~2025-06-29] VITALS: Ht 157.5 cm; Wt 55.0 kg
[2025-06-29 17:54] VITALS: O2SAT 100
[2025-06-29 20:28] VITALS: BP 13/71; PULSE 63; RESP 16; TEMP 37.1; O2SAT 100
== END 2025-06-29 20:30 | disposition home or self-care (01) ==
LOC: ER 17:47
DX: S52.692D Other fracture of lower end of left ulna, subsequent encounter for closed fracture with routine healing (principal); I10 Essential (primary) hypertension; X58.XXXA Exposure to other specified factors, initial encounter; Y93.89 Activity, other specified; Y92.89 Other specified places as the place of occurrence of the external cause; Y99.8 Other external cause status
CPT/HCPCS: 29125; 73090; 73100; 99283; 99284

== ENCOUNTER 2025-07-03 20:24 | Emergency (ER) | payer MEDICAID ==
[~2025-07-03] VITALS: Ht 170.2 cm; Wt 71.0 kg
[2025-07-03 20:28] VITALS: BP 142/98; TEMP 36.9; O2SAT 100
[2025-07-03 20:33] VITALS: PULSE 92; RESP 16; O2SAT 100
== END 2025-07-03 21:21 | disposition left against medical advice (07) ==
LOC: ER 20:24
DX: M25.532 Pain in left wrist (principal)
CPT/HCPCS: 99281